=== PATIENT | male | born 2000 | race Caucasian/White ===

== ENCOUNTER 2024-01-17 06:35 | Day surgery (SDC) | payer OTHER ==
[~2024-01-17] VITALS: Ht 170.2 cm; Wt 75.0 kg
[~2024-01-17 06:35] MED LIST: ADVIL100 M1 PO; CAL-MAG TABLET1 EACH PO; DEXAMETHASONE SOD PHOS 4 MG/ML VIAL ONE; FAMOTIDINE 20 MG/ 2 ML VIAL ONE; KETOROLAC TROMETHAMINE 30 MG/ML VIAL ONE; LACTATED RINGER'S 1,000 ML IV ONE; LACTATED RINGER'S 1,000 ML IV SCH; LIDOCAINE HCL 4% 5 ML AMP ONE; MELATONIN1 MG PO; METOCLOPRAMIDE HCL 10 MG/2 ML SDV ONE; MIDAZOLAM HCL 10 MG/5 ML SYR ONE; MIDAZOLAM HCL 2 MG/2 ML VIAL ONE; ROCURONIUM BROMIDE 50 MG/5 ML SYR ONE; SUCCINYLCHOLINE IN 0.9% NACL 200 MG/10 ML SYRINGE ONE; SUGAMMADEX SODIUM 200 MG/2 ML ML ONE; TYLENOL EXTRA500 MG PO; VIT C-ECHINACE1 EACH PO; VIT D2-K1 20-1259 ML PO; fentaNYL citrate 100 MCG/2 ML VIAL ONE; ondansetron HCL 4 MG/2 ML VIAL ONE; propofoL 200 MG/20 ML VIAL ONE
[2024-01-17] MEDS ORDERED: MIDAZOLAM HCL 10 MG/5 ML SYR PO PRN (07:00)
[2024-01-17] MEDS ORDERED: IBLOOD GLUCOSE TEST STRIP 1 EA TEST VI PRN ×2 (07:00→09:30)
[2024-01-17] MEDS ORDERED: LIDOCAINE HCL 1% 5 ML SDV INJ ONE (07:00)
[2024-01-17 07:02] VITALS: BP 111/76
[2024-01-17] MEDS ORDERED: NALOXONE HCL 0.4 MG SYR IV PRN (09:30)
[2024-01-17] MEDS ORDERED: METOCLOPRAMIDE HCL 10 MG/2 ML SDV IV PRN (09:30)
[2024-01-17] MEDS ORDERED: fentaNYL citrate 50 MCG/ML SDV IV PRN (09:30)
[2024-01-17] MEDS ORDERED: MORPHINE SULFATE 10 MG/ML VIAL IV PRN (09:30)
[2024-01-17] MEDS ORDERED: droPERidol 5 MG/2 ML VIAL IV PRN (09:30)
[2024-01-17] MEDS ORDERED: ondansetron HCL 4 MG/2 ML VIAL IV PRN (09:30)
[2024-01-17] MEDS ORDERED: PROCHLORPERAZINE EDISYLATE 10 MG/2 ML VIAL IV PRN (09:30)
[2024-01-17 10:19] VITALS: BP 116/73
--- NOTE | 2024-01-17 10:24 | NUR ---
1015 PT ARRIVED FROM PACU TO DAY SURGERY ROOM TX. PT AWAKE AND EMOTIONAL. BREATHING EQUAL AND UNLABORED. REPORT TAKEN FROM SURY Phillips RN. VITALS TAKEN. IV ASSESSED. 1026 PT HAS WATER AT BEDSIDE AND BUSINESS DEVELOPER AT BEDSIDE. PT HAS PERSONAL ITEMS WITHIN REACH. CALL LIGHT WITHIN REACH.
--- NOTE | 2024-01-17 10:32 | NUR ---
01/17/24 1032 Merna Smith 1989- PT ARRIVES TO PACU NONAROUSABLE TO STIMULI WITH AN OPA IN PLACE AND PT NEEDING A JAW THRUST TO MAINTAIN PATENT AIRWAY. PT TACHYPNEIC OXYGEN SAT HIGH 90'S ON 10L VIA MASK. 1000- PT GROANING WITH JAW THRUST. ATTEMPTED TO STOP JAW THRUST. PT CONTINUES TO GROAN. 1001- PT SITS UP IN BED, STARTS COUGHING, AND THRASHING AROUND IN THE BED. OPA REMOVED. PT UPDATED THAT HIS PROCEDURE IS OVER. PT KEPT SAFE FROM INJURY. IV SITE MAINTAINED. 1002- PT'S IV WRAPPED WITH GAUZE AND TAPE TO KEEP SAFE IN PLACE. OXYGEN MASK REMOVED OXYGEN SAT IS HIGH 90'S TO 100% ON 10L VIA MASK AND THIS APPEARS TO BE IRRITATING THE PT.
[2024-01-17 11:14] VITALS: BP 112/67
--- NOTE | 2024-01-17 11:41 | NUR ---
1135 PT AMBULATED TO BATHROOM BUT WAS ONLY ABLE TO VOID 10 MLS OF URINE. FLUIDS HOOKED BACK UP TO IV AND OPENED. PT WATER REFILLED. PT ABLE TO TOLERATE PO WATER AND JELLO. VITALS TAKEN. IV ASSESSED. PT HAS PERSONAL ITEMS WITHIN REACH, CALL LIGHT WITHIN REACH, PT HAS CAREGIVER AT BEDSIDE.
--- NOTE | 2024-01-17 12:47 | NUR ---
1155 PT AMBULATED TO BATHROOM WITH RN AND VOIDED 400 MLS URINE. PT MET CRITERIA AND ABLE TO TOLERATE PO FLUIDS AND SNACKS. 1157 IV DISCONTINUED 1200 PT DRESSED 1205 PT DISCHARGED FROM DAY SURGLERY VIA WHEELCHAIR TO CAREGIVER CAR AT THE FRONT OF HOSPITAL.
== END 2024-01-17 12:05 | disposition home or self-care (01) ==
LOC: OPS 06:35 → DS 06:35 → OPS 09:00
PROVIDERS: ATTEND Dentist General Practice
PROC: 0CRXXJ0 Replacement of Lower Tooth, Single, with Synthetic Substitute, External Approach (ICD-10-PCS; principal; 2024-01-17 09:00)
DX: K02.9 Dental caries, unspecified (principal)
CPT/HCPCS: 00170; J0330; J1100; J1885; J2250; J2405; J2704; J2765; J3010; J3490; J7121